=== PATIENT | female | born 1980 | race Hispanic/Latino ===

== ENCOUNTER 2024-02-19 01:01 | Emergency (ER) | payer SELFPAY ==
[2024-02-19 01:10] VITALS: BP 181/100
--- NOTE | 2024-02-19 01:45 | ED.GENMED ---
History of Present Illness
<LUZ Youngblood - Last Filed: 02/19/24 01:56>
General
Chief Complaint: Skin Problem
Source: patient and spouse
Exam Limitations: none
Time Seen by Provider: 02/19/24 01:34
Nursing documentation reviewed up to this point in time: agreed with
History of Present Illness
History of Present Illness:
Pt is a 43 y/o F with pmhx of chickenpox as a child presents with complaints of rash on her left shoulder and neck x 1 week. The rash is vesicular with an erythematous base in a dermatomal pattern. The rash causes a burning pain that started
yesterday and is rated a 6-7/10 in severity. She has tried hydrocortisone cream with minimal relief. The rash is worsening since onset. There was an associated fever and cough which have resolved. Denies hearing or vision changes, rash on the face,
radiation of pain, SOB. She is unsure if she is up to date with her immunizations. She reports that she has been under a lot of stress due to the recent of her mother and grandmother.
Past History
<LUZ Youngblood - Last Filed: 02/19/24 01:56>
Past History
ED Past Medical History: Other (Chicken pox)
ED Past Surgical History: None
Social History
Tobacco: Non-smoker
Alcohol: Occasional
Drug: None
Personal:
Living: with family
Review of Systems
<LUZ Youngblood - Last Filed: 02/19/24 01:56>
Review of Systems
Allergies reviewed?: Yes
Constitutional: Reports no symptoms
EENT: Reports no symptoms
Respiratory: Reports no symptoms
Cardiac: Reports no symptoms
ABD/GI: Reports no symptoms
: Reports no symptoms
Musculoskeletal: Reports no symptoms
Skin: Reports rash
Neurological: Reports no symptoms
Endocrine: Reports no symptoms
Hematologic/Lymphatic: Reports no symptoms
Psychiatric: Reports no symptoms
Phy Exam
<LUZ Youngblood - Last Filed: 02/19/24 01:56>
General Physical Exam
General Presentation: well appearing and mild distress
General age: appears stated age
General Skin: warm and dry
General Habitus: normal
General Mental: alert
General Hydration: dry mucous membranes
ENT Exam
ENT Exam: EOMI, neck supple and swallowing well
Eye Exam
Eye Exam: PERRL, EOMI, cornea clear, conjunctiva normal, visual acuity normal and visual meneses normal
Cardiovascular Exam
Cardiovascular Exam: regular rate/rhythm and normal peripheral pulses
Pulmonary Exam
Pulmonary Exam: lungs clear, no respiratory distress, no rales, chest non tender, no crackles, no rhonchi, no stridor and no wheezing
Cough: non productive cough
Gastrointestinal Exam
Gastrointestinal Exam: normal bowel sounds, non tender, soft and non distended
Neurological Exam
Neurological Exam: alert, oriented x3, CN II-XII intact, no motor deficits, normal reflexs, speech normal and abnormal gait
Musculoskeletal Exam
Musculoskeletal Exam: full ROM, no edema and neuro vasc intact
Skin Exam
Skin Exam: normal color, warm/dry and other (Vesicular rash with erythematous base over the anterior and posterior left shoulder and posterior neck.)
Psychiatric Exam
Psychiatric Exam: normal mood/affect
Course
<LUZ Youngblood - Last Filed: 02/19/24 01:56>
Orders/Labs/Results
Orders:
Orders
02/19/24 02:11
Valacyclovir HCl [Valtrex] 1,000 mg PO NOW STA
Vital Signs
Initial and Last Documented VS:
Initial Vital Signs
Temp Pulse Resp BP Pulse Ox
98.2 F 65 16 181/100 100
02/19/24 01:10 02/19/24 01:10 02/19/24 01:10 02/19/24 01:10 02/19/24 01:10
Last Documented Vital Signs
Temp Pulse Resp BP Pulse Ox
98.2 F 65 16 181/100 100
02/19/24 01:10 02/19/24 01:10 02/19/24 01:10 02/19/24 01:10 02/19/24 01:10
<Jorge Jimenez DO - Last Filed: 02/19/24 07:03>
Orders/Labs/Results
Orders:
Orders
02/19/24 02:11
Valacyclovir HCl [Valtrex] 1,000 mg PO NOW STA
Vital Signs
Initial and Last Documented VS:
Initial Vital Signs
Temp Pulse Resp BP Pulse Ox
98.2 F 65 16 181/100 100
02/19/24 01:10 02/19/24 01:10 02/19/24 01:10 02/19/24 01:10 02/19/24 01:10
Last Documented Vital Signs
Temp Pulse Resp BP Pulse Ox
98.2 F 65 16 181/100 100
02/19/24 01:10 02/19/24 01:10 02/19/24 01:10 02/19/24 01:10 02/19/24 01:10
<LUZ Youngblood - Last Filed: 02/19/24 01:56>
MDM/Problems Addressed
Differential Diagnosis Includes:
Herpes Zoster
<DO Louisa Cade Last Filed: 02/19/24 07:03>
MDM/Problems Addressed
MDM/Problems Addressed:
Herpes zoster
<LUZ Youngblood - Last Filed: 02/19/24 01:56>
*Critical Care Note
Total Time (30-74mins, 75-104mins- exclusive of procedures): Not Applicable
<DO Louisa Cade Filed: 02/19/24 07:03>
*Pulse Oximetry
Patient hypoxic: no
Data Reviewed
Source: patient and family
ED Attending Note
<Galen LUZ Mendez - Last Filed: 02/19/24 01:56>
-
Portions of this chart may have been created with voice recognition software.� Occasional wrong word or��sound alike� substitutions may have occurred due to the inherent limitations of voice recognition software.
<Jorge Jimenez DO - Last Filed: 02/19/24 07:03>
ED Attending Note
Patient seen and examined by attending physician: Yes
I performed the substantive portion of visit, reviewed & personally made and approve the management plan that is documented in note by myself or NIEVES.: Yes
ED Attending Note:
41-year-old female presents with a painful rash. Is noted to the left trapezius region. Exam: Vesicular rash noted to the left of midline toward the shoulder. Assessment plan: Varicella-zoster noted. Treat with antiviral's and steroids.
Discharge Plan
Departure
Patient Disposition: Home (Routine Discharge)
Date of Disposition: 02/19/24
Time of Disposition: 02:12
Patient with high blood pressure during this ER visit?: Yes
Discharge Problem:
Shingles
Instructions: Shingles, BLOOD PRESSURE
Prescriptions:
New
valacyclovir 1 gram tablet
1,000 mg PO TID Qty: 21 0RF
prednisone 10 mg Tablet
See Rx Instructions .ROUTE .COMPLEX Qty: 30 0RF
Rx Instructions:
Take By Mouth:
40 mg daily x3 days, 30 mg daily x3 days,
20 mg daily x3 days, 10 mg daily x3 days.
Activity Restrictions/Additional Instructions:
Please see your doctor in the next 3 to 5 days for follow-up and reevaluation. Keep wounds covered. Please avoid exposure to anybody at high risk for exposure to shingles as discussed. Return immediately for fevers, worsening rash or any other
concerns.
Interventions
Interventions:
*Risk Screen - Suicide Last Done: 02/19/24 01:10
*Neglect/Abuse Screening Last Done: 02/19/24 01:10
*ED COVID-19 Vaccine History Last Done: 02/19/24 01:10
*Nursing Disposition Last Done: 02/19/24 03:07
ED-Skin Assessment Last Done: 02/19/24 03:06
Discharge Date and Time
Discharge Date/Time: 02/19/24 03:07
Print Language: ALGERIAN
[2024-02-19] MEDS: VALTREX 1000 MG PO (02:42)
== END 2024-02-19 03:07 | disposition home or self-care (01) ==
LOC: EMR 01:01
PROVIDERS: EMERGENCY PHYSICIAN Emergency Medicine
DX: B02.9 Zoster without complications (principal); R03.0 Elevated blood-pressure reading, without diagnosis of hypertension; Z63.4 Disappearance and death of family member; Z73.3 Stress, not elsewhere classified
CPT/HCPCS: 99283